=== PATIENT | female | born 1950 | race Caucasian/White ===

== ENCOUNTER 2019-10-19 08:57 | Day surgery (SDC) | payer MEDICARE ==
[2019-10-19] MEDS ORDERED: Depo-Medrol 40 MG/ML IM ONE (08:58)
[2019-10-19] MEDS ORDERED: Marcaine 0.5% SDV 10 ML IJ ONE (08:58)
[2019-10-19] MEDS ORDERED: DIPRIVAN 200 MG/20 ML IV ONE (10:24)
[2019-10-19] MEDS ORDERED: Ketamine HCl 50 MG/ML ONE (10:24)
[2019-10-19] MEDS ORDERED: Lactated Ringers 1,000 ML IV ONE (12:50)
--- NOTE | 2019-10-19 14:29 | XRAY ---
12 seconds fluoroscopy time in surgery for right intra-articular knee injection.
--- NOTE | 2019-10-19 14:29 | XRAY ---
6 seconds fluoroscopy time in surgery for left intra-articular knee injection.
--- NOTE | 2019-10-22 21:21 | XRAY ---
Indication: Intra-articular left knee injection. Intraoperative fluoroscopy was provided for 6 seconds. A single digital spot image submitted for interpretation demonstrates a needle tip projected over the left femur intercondylar notch. A small amount contrast has been injected for needle tip placement. Correlate with intraoperative findings/report.
--- NOTE | 2019-10-22 21:21 | XRAY ---
Indication: Intra-articular right knee injection. Intraoperative fluoroscopy was provided for 12 seconds. A single digital spot image submitted for interpretation demonstrates a needle tip projected over the right femur intercondylar notch. A small amount of contrast has been injected for needle tip placement. Correlate with intraoperative findings/report.
== END 2019-10-19 10:50 | disposition home or self-care (01) ==
LOC: SDC-PAIN 08:57
PROVIDERS: ATTEND Psychiatry & Neurology Pain Medicine
DX: M17.0 Bilateral primary osteoarthritis of knee (principal); E11.9 Type 2 diabetes mellitus without complications; J45.909 Unspecified asthma, uncomplicated; M06.9 Rheumatoid arthritis, unspecified; I10 Essential (primary) hypertension; G47.30 Sleep apnea, unspecified; Z79.899 Other long term (current) drug therapy
CPT/HCPCS: 20610; 73560; 77002; 82962; J1030; J2704; Q9966

== ENCOUNTER 2019-11-16 07:49 | Day surgery (SDC) | payer MEDICARE ==
[2019-11-16] MEDS ORDERED: LIDOCAINE HCL 2% 100 MG/5 ML IJ ONE (07:50)
[2019-11-16] MEDS ORDERED: Depo-Medrol 40 MG/ML IM ONE (07:50)
[2019-11-16] MEDS ORDERED: Ketamine HCl 50 MG/ML ONE (09:16)
[2019-11-16] MEDS ORDERED: DIPRIVAN 200 MG/20 ML IV ONE (09:16)
--- NOTE | 2019-11-16 11:00 | XRAY ---
Indication: Bilateral L4-S1 MBB. Intraoperative fluoroscopy was provided for 13 seconds. Single digital spot image submitted for interpretation demonstrates posterior needle tips projecting over the expected course of the left and right L4-S1 nerve roots. Correlate with intraoperative findings/report.
--- NOTE | 2019-11-16 11:48 | XRAY ---
13 seconds of fluoroscopy was used in surgery for a bilateral L4-L5 and L5-S1 MBB.
[2019-11-16] MEDS ORDERED: Lactated Ringers 1,000 ML IV ONE (15:54)
== END 2019-11-16 09:46 | disposition home or self-care (01) ==
LOC: SDC-PAIN 07:49
PROVIDERS: ATTEND Psychiatry & Neurology Pain Medicine
DX: M47.816 Spondylosis without myelopathy or radiculopathy, lumbar region (principal); E11.9 Type 2 diabetes mellitus without complications; I10 Essential (primary) hypertension; M06.9 Rheumatoid arthritis, unspecified; G47.30 Sleep apnea, unspecified; M19.90 Unspecified osteoarthritis, unspecified site; J45.909 Unspecified asthma, uncomplicated; Z79.899 Other long term (current) drug therapy
CPT/HCPCS: 64494; 72020; 77002; 82962; J1030; J2704

== ENCOUNTER 2019-12-14 07:55 | Day surgery (SDC) | payer MEDICARE ==
[~2019-12-14 07:55] MED LIST: DIPRIVAN 200 MG/20 ML IV ONE; Ketamine HCl 50 MG/ML ONE
[2019-12-14] MEDS ORDERED: BUPIVACAINE 0.5% VIAL IJ ONE (07:56)
[2019-12-14] MEDS ORDERED: Depo-Medrol 40 MG/ML IM ONE (07:56)
--- NOTE | 2019-12-14 12:44 | XRAY ---
13 seconds of fluoroscopy was used in surgery for a bilateral L4-L5 and L5-S1 MBB.
[2019-12-14] MEDS ORDERED: Lactated Ringers 1,000 ML IV ONE (14:38)
== END 2019-12-14 09:27 | disposition home or self-care (01) ==
LOC: SDC-PAIN 07:55
PROVIDERS: ATTEND Psychiatry & Neurology Pain Medicine
DX: M47.816 Spondylosis without myelopathy or radiculopathy, lumbar region (principal); E11.9 Type 2 diabetes mellitus without complications; J45.909 Unspecified asthma, uncomplicated; I10 Essential (primary) hypertension; M06.9 Rheumatoid arthritis, unspecified; G47.30 Sleep apnea, unspecified; Z79.899 Other long term (current) drug therapy
CPT/HCPCS: 64493; 64494; 72020; 77002; 82962; J1030; J2704

== ENCOUNTER 2020-01-11 10:20 | Day surgery (SDC) | payer MEDICARE ==
[2020-01-11] MEDS ORDERED: BUPIVACAINE 0.5% VIAL IJ ONE (10:21)
[2020-01-11] MEDS ORDERED: Depo-Medrol 40 MG/ML IM ONE (10:21)
[2020-01-11] MEDS ORDERED: Xylocaine 1% Vial 30 ML PF IJ ONE (10:21)
[2020-01-11] MEDS ORDERED: DIPRIVAN 200 MG/20 ML IV ONE (12:24)
[2020-01-11] MEDS ORDERED: Ketamine HCl 50 MG/ML ONE (12:24)
--- NOTE | 2020-01-11 14:07 | XRAY ---
Indication: Right L4-S1 RFA. Intraoperative fluoroscopy was provided for 15 seconds. 3 digital spot images submitted for interpretation demonstrates posterior needle tips projecting over the expected course of the right L4-S1 nerve roots. Correlate with intraoperative findings/report.
--- NOTE | 2020-01-11 14:17 | XRAY ---
15 seconds fluoroscopy time in surgery for right L4-S1 RFA.
[2020-01-11] MEDS ORDERED: Lactated Ringers 1,000 ML IV ONE (15:30)
== END 2020-01-11 12:55 | disposition home or self-care (01) ==
LOC: SDC-PAIN 10:20
PROVIDERS: ATTEND Psychiatry & Neurology Pain Medicine
DX: M47.816 Spondylosis without myelopathy or radiculopathy, lumbar region (principal); E11.9 Type 2 diabetes mellitus without complications; I10 Essential (primary) hypertension; M06.9 Rheumatoid arthritis, unspecified; J45.909 Unspecified asthma, uncomplicated; G47.30 Sleep apnea, unspecified; Z79.899 Other long term (current) drug therapy
CPT/HCPCS: 64635; 64636; 72100; 77002; 82962; J1030; J2001; J2704

== ENCOUNTER 2020-01-18 10:17 | Day surgery (SDC) | payer MEDICARE ==
[2020-01-18] MEDS ORDERED: BUPIVACAINE 0.5% VIAL IJ ONE (10:18)
[2020-01-18] MEDS ORDERED: Xylocaine 1% Vial 30 ML PF IJ ONE (10:18)
[2020-01-18] MEDS ORDERED: Depo-Medrol 40 MG/ML IM ONE (10:18)
--- NOTE | 2020-01-18 13:23 | XRAY ---
Indication: Left L4-S1 RFA. Intraoperative fluoroscopy was provided for 21 seconds. 3 digital spot images submitted for interpretation demonstrates posterior needle tips projecting over the expected left L4-S1 nerve roots. Correlate with intraoperative findings/report.
--- NOTE | 2020-01-18 13:25 | XRAY ---
21 seconds fluoroscopy time in surgery for left L4-S1 RFA.
[2020-01-18] MEDS ORDERED: Lactated Ringers 1,000 ML IV ONE (15:11)
== END 2020-01-18 12:01 | disposition home or self-care (01) ==
LOC: SDC-PAIN 10:17
PROVIDERS: ATTEND Psychiatry & Neurology Pain Medicine
DX: M47.816 Spondylosis without myelopathy or radiculopathy, lumbar region (principal); E11.9 Type 2 diabetes mellitus without complications; I10 Essential (primary) hypertension; M06.9 Rheumatoid arthritis, unspecified; G47.30 Sleep apnea, unspecified; Z79.899 Other long term (current) drug therapy
CPT/HCPCS: 64635; 64636; 72100; 77002; 82962; J1030; J2001; J2704

== ENCOUNTER 2020-08-01 08:46 | Day surgery (SDC) | payer MEDICARE ==
[2020-08-01] MEDS ORDERED: BUPIVACAINE 0.5% VIAL IJ ONE (08:47)
[2020-08-01] MEDS ORDERED: Depo-Medrol 40 MG/ML IM ONE (08:47)
[2020-08-01] MEDS ORDERED: DIPRIVAN 200 MG/20 ML IV ONE ×2 (10:26→11:15)
[2020-08-01] MEDS ORDERED: Ketamine HCl 50 MG/ML ONE (10:26)
--- NOTE | 2020-08-01 12:21 | XRAY ---
Indication: Right knee injection. Intraoperative fluoroscopy provided for 23 seconds. Single digital spot image submitted for interpretation demonstrates needle tip projecting over the right femur intercondylar notch. Small amount of contrast injected for needle tip placement. Correlate with intraoperative findings/report.
--- NOTE | 2020-08-01 12:21 | XRAY ---
Indication: Left knee injection. Intraoperative fluoroscopy provided for 14 seconds. 2 digital spot image submitted for interpretation demonstrates needle tip projecting over the left femur intercondylar notch. Small amount of contrast injected for needle tip placement. Correlate with intraoperative findings/report.
--- NOTE | 2020-08-01 12:49 | XRAY ---
23 seconds of fluoroscopy was used in surgery for a right intra-articular knee injection.
--- NOTE | 2020-08-01 12:49 | XRAY ---
14 seconds of fluoroscopy was used in surgery for a left intra-articular knee injection.
[2020-08-01] MEDS ORDERED: Lactated Ringers 1,000 ML IV ONE (15:13)
== END 2020-08-01 11:37 | disposition home or self-care (01) ==
LOC: SDC-PAIN 08:46
PROVIDERS: ATTEND Psychiatry & Neurology Pain Medicine
DX: M17.0 Bilateral primary osteoarthritis of knee (principal); E11.9 Type 2 diabetes mellitus without complications; I10 Essential (primary) hypertension; M06.9 Rheumatoid arthritis, unspecified; G47.30 Sleep apnea, unspecified; J45.909 Unspecified asthma, uncomplicated; Z79.899 Other long term (current) drug therapy
CPT/HCPCS: 20610; 73560; 77002; 82947; J1030; J2704; Q9966

== ENCOUNTER 2021-05-29 07:23 | Day surgery (SDC) | payer MEDICARE ==
[2021-05-29] MEDS ORDERED: GELSYN-3 IU ONE (07:24)
[2021-05-29] MEDS ORDERED: Lactated Ringers 1,000 ML IV ONE (08:58)
[2021-05-29] MEDS ORDERED: DIPRIVAN 200 MG/20 ML IV ONE (09:26)
--- NOTE | 2021-05-29 11:42 | XRAY ---
14 seconds of fluoroscopy was used in surgery for a left intra-articular knee injection.
--- NOTE | 2021-05-29 11:51 | XRAY ---
Indication: Right knee injection. Intraoperative fluoroscopy provided for 11 seconds. Single digital spot image submitted for interpretation demonstrates needle tip projecting over the right femur intercondylar notch. Small amount of contrast injected for needle tip placement. Correlate with intraoperative findings/report.
--- NOTE | 2021-05-29 11:53 | XRAY ---
Indication: Left knee injection. Intraoperative fluoroscopy provided for 14 seconds. Single digital spot image submitted for interpretation demonstrates needle tip projecting over the left femur intercondylar notch. Small amount of contrast injected for needle tip placement. Correlate with intraoperative findings/report.
--- NOTE | 2021-05-29 11:53 | XRAY ---
11 seconds of fluoroscopy was used in surgery for a right intra-articular knee injection.
== END 2021-05-29 09:50 | disposition home or self-care (01) ==
LOC: SDC-PAIN 07:23
PROVIDERS: ATTEND Psychiatry & Neurology Pain Medicine
DX: M17.0 Bilateral primary osteoarthritis of knee (principal); E11.9 Type 2 diabetes mellitus without complications; I10 Essential (primary) hypertension; Z79.899 Other long term (current) drug therapy
CPT/HCPCS: 20610; 73560; 77002; 82947; J2704; Q9966; J7328

== ENCOUNTER 2021-06-05 07:28 | Day surgery (SDC) | payer MEDICARE ==
[2021-06-05] MEDS ORDERED: GELSYN-3 IU ONE (07:29)
[2021-06-05] MEDS ORDERED: DIPRIVAN 200 MG/20 ML IV ONE (09:24)
--- NOTE | 2021-06-05 10:04 | XRAY ---
Indication: Left knee injection. Intraoperative fluoroscopy provided for 7 seconds. Single digital spot image submitted for interpretation demonstrates needle tip projecting over the left femur intercondylar notch. Small amount of contrast injected for needle tip placement. Correlate with intraoperative findings/report.
[2021-06-05] MEDS ORDERED: Lactated Ringers 1,000 ML IV ONE (10:14)
--- NOTE | 2021-06-05 10:30 | XRAY ---
11 seconds of fluoroscopy was used in surgery for a right knee intra-articular injection.
--- NOTE | 2021-06-05 10:40 | XRAY ---
7 seconds of fluoroscopy was used in surgery for a left knee intra-articular injection.
== END 2021-06-05 09:45 | disposition home or self-care (01) ==
LOC: SDC-PAIN 07:28
PROVIDERS: ATTEND Psychiatry & Neurology Pain Medicine
DX: M17.0 Bilateral primary osteoarthritis of knee (principal); E11.9 Type 2 diabetes mellitus without complications; I10 Essential (primary) hypertension; Z79.899 Other long term (current) drug therapy
CPT/HCPCS: 20610; 73560; 77002; 82947; J2704; Q9966; J7328

== ENCOUNTER 2021-06-12 07:41 | Day surgery (SDC) | payer MEDICARE ==
[2021-06-12] MEDS ORDERED: Depo-Medrol 40 MG/ML IM ONE (07:42)
[2021-06-12] MEDS ORDERED: GELSYN-3 IU ONE (07:42)
[2021-06-12] MEDS ORDERED: DIPRIVAN 200 MG/20 ML IV ONE (09:07)
--- NOTE | 2021-06-12 10:32 | XRAY ---
Indication: Right knee injection. Intraoperative fluoroscopy provided for 14 seconds. Single digital spot image submitted for interpretation demonstrates needle tip projecting over the right femur intercondylar notch. Small amount of contrast injected for needle tip placement. Correlate with intraoperative findings/report.
--- NOTE | 2021-06-12 10:55 | XRAY ---
30 seconds fluoroscopy time in surgery for right C2-C4 RFA.
[2021-06-12] MEDS ORDERED: Lactated Ringers 1,000 ML IV ONE (11:20)
== END 2021-06-12 09:55 | disposition home or self-care (01) ==
LOC: SDC-PAIN 07:41
PROVIDERS: ATTEND Psychiatry & Neurology Pain Medicine
DX: M17.0 Bilateral primary osteoarthritis of knee (principal); E11.9 Type 2 diabetes mellitus without complications; Z79.899 Other long term (current) drug therapy
CPT/HCPCS: 20610; 73560; 77002; 82947; J1030; J2704; Q9966; J7328

== ENCOUNTER 2021-09-18 10:24 | Day surgery (SDC) | payer MEDICARE ==
[2021-09-18] MEDS ORDERED: Depo-Medrol 40 MG/ML IM ONE (10:25)
[2021-09-18] MEDS ORDERED: Sodium Chloride 0.9(Preservative Free) 10 ML IJ ONE (10:25)
[2021-09-18] MEDS ORDERED: DIPRIVAN 200 MG/20 ML IV ONE (13:14)
[2021-09-18] MEDS ORDERED: Lactated Ringers 1,000 ML IV ONE (13:40)
--- NOTE | 2021-09-18 13:50 | XRAY ---
Indication: Right L4-S1 transforaminal ARCHANA. Intraoperative fluoroscopy provided for 30 seconds. 4 digital spot image submitted for interpretation demonstrates posterior needle tips projecting over the expected right L4 and L5 nerve roots. Small amount of contrast injected for needle tip placement. Correlate with intraoperative findings/report.
--- NOTE | 2021-09-18 14:25 | XRAY ---
30 seconds of fluoroscopy was used in surgery for a right L4-S1 transforaminal ARCHANA.
== END 2021-09-18 13:35 | disposition home or self-care (01) ==
LOC: SDC-PAIN 10:24
PROVIDERS: ATTEND Psychiatry & Neurology Pain Medicine
DX: M54.16 Radiculopathy, lumbar region (principal); E11.9 Type 2 diabetes mellitus without complications; I10 Essential (primary) hypertension; Z79.899 Other long term (current) drug therapy
CPT/HCPCS: 64483; 64484; 72100; 77003; 82947; J1030; J2704; Q9966

== ENCOUNTER 2021-12-18 07:20 | Day surgery (SDC) | payer MEDICARE ==
[2021-12-18] MEDS ORDERED: Marcaine Mpf 0.5% Vial 30 Ml IJ ONE (07:21)
[2021-12-18] MEDS ORDERED: XYLOCAINE-MPF 1% 5ML SDV IJ ONE (07:21)
[2021-12-18] MEDS ORDERED: Depo-Medrol 40 MG/ML IM ONE (07:21)
[2021-12-18] MEDS ORDERED: DIPRIVAN 200 MG/20 ML IV ONE (09:25)
--- NOTE | 2021-12-18 11:31 | XRAY ---
Indication: Right L4-S1 RFA. Intraoperative fluoroscopy provided for 24 seconds. 4 digital spot image submitted for interpretation demonstrates posterior needle tips projecting over the expected right L4-S1 nerve roots. Correlate with intraoperative findings/report.
--- NOTE | 2021-12-18 12:08 | XRAY ---
24 seconds of fluoroscopy was used in surgery for a right L4-S1 RFA.
[2021-12-18] MEDS ORDERED: Lactated Ringers 1,000 ML IV ONE (12:13)
== END 2021-12-18 09:50 | disposition home or self-care (01) ==
LOC: SDC-PAIN 07:20
PROVIDERS: ATTEND Psychiatry & Neurology Pain Medicine
DX: M47.816 Spondylosis without myelopathy or radiculopathy, lumbar region (principal); E11.9 Type 2 diabetes mellitus without complications; Z79.899 Other long term (current) drug therapy
CPT/HCPCS: 64635; 64636; 72100; 77002; 82947; J1030; J2704

== ENCOUNTER 2021-12-25 07:27 | Day surgery (SDC) | payer MEDICARE ==
[2021-12-25] MEDS ORDERED: Marcaine Mpf 0.5% Vial 30 Ml IJ ONE (07:28)
[2021-12-25] MEDS ORDERED: XYLOCAINE-MPF 1% 5ML SDV IJ ONE (07:28)
[2021-12-25] MEDS ORDERED: Depo-Medrol 40 MG/ML IM ONE (07:28)
[2021-12-25] MEDS ORDERED: DIPRIVAN 200 MG/20 ML IV ONE (09:01)
[2021-12-25] MEDS ORDERED: Lactated Ringers 1,000 ML IV ONE (10:15)
--- NOTE | 2021-12-25 11:14 | XRAY ---
Indication: Left L4-S1 RFA. Intraoperative fluoroscopy provided for 19 seconds. 3 digital spot image submitted for interpretation demonstrates posterior needle tips projecting over the expected left L4-S1 nerve roots. Correlate with intraoperative findings/report.
--- NOTE | 2021-12-25 11:14 | XRAY ---
19 seconds fluoroscopy time in surgery for left L4-S1 RFA
== END 2021-12-25 09:23 | disposition home or self-care (01) ==
LOC: SDC-PAIN 07:27
PROVIDERS: ATTEND Psychiatry & Neurology Pain Medicine
DX: M47.816 Spondylosis without myelopathy or radiculopathy, lumbar region (principal); E11.9 Type 2 diabetes mellitus without complications; Z79.899 Other long term (current) drug therapy
CPT/HCPCS: 64635; 64636; 72100; 77002; 82947; J1030; J2704

== ENCOUNTER 2022-05-14 09:07 | Day surgery (SDC) | payer MEDICARE ==
[2022-05-14] MEDS ORDERED: GELSYN-3 IU ONE (09:08)
[2022-05-14] MEDS ORDERED: BUPIVACAINE 0.5% VIAL IJ ONE (09:08)
[2022-05-14] MEDS ORDERED: Depo-Medrol 40 MG/ML IM ONE (09:08)
[2022-05-14] MEDS ORDERED: DIPRIVAN 200 MG/20 ML IV ONE (11:01)
--- NOTE | 2022-05-14 12:15 | XRAY ---
Indication: Right knee injection. Intraoperative fluoroscopy provided for 12 seconds. Single digital spot image submitted for interpretation demonstrates needle tip projecting over the right femur intercondylar notch. Small amount of contrast injected for needle tip placement. Correlate with intraoperative findings/report.
--- NOTE | 2022-05-14 12:22 | XRAY ---
12 seconds fluoroscopy time in surgery for intra-articular injection of the right knee.
[2022-05-14] MEDS ORDERED: Lactated Ringers 1,000 ML IV ONE (15:30)
== END 2022-05-14 11:30 | disposition home or self-care (01) ==
LOC: SDC-PAIN 09:07
PROVIDERS: ATTEND Psychiatry & Neurology Pain Medicine
DX: M17.11 Unilateral primary osteoarthritis, right knee (principal); E11.9 Type 2 diabetes mellitus without complications; Z79.899 Other long term (current) drug therapy
CPT/HCPCS: 20610; 73560; 77002; 82947; J1030; J2704; J7328; Q9966

== ENCOUNTER 2022-05-21 08:56 | Day surgery (SDC) | payer MEDICARE ==
[2022-05-21] MEDS ORDERED: GELSYN-3 IU ONE (08:57)
[2022-05-21] MEDS ORDERED: DIPRIVAN 200 MG/20 ML IV ONE (11:10)
[2022-05-21] MEDS ORDERED: Lactated Ringers 1,000 ML IV ONE (11:37)
--- NOTE | 2022-05-21 12:25 | XRAY ---
11 seconds of fluoroscopy was used in surgery for a right intra-articular knee injection.
== END 2022-05-21 11:50 | disposition home or self-care (01) ==
LOC: SDC-PAIN 08:56
PROVIDERS: ATTEND Psychiatry & Neurology Pain Medicine
DX: M17.11 Unilateral primary osteoarthritis, right knee (principal); E11.9 Type 2 diabetes mellitus without complications; Z79.899 Other long term (current) drug therapy
CPT/HCPCS: 20610; 73560; 77002; 82947; J2704; J7328; Q9966

== ENCOUNTER 2022-05-28 09:06 | Day surgery (SDC) | payer MEDICARE ==
[2022-05-28] MEDS ORDERED: SYNVISC 16 MG/2 ML SYRINGE IU ONE (09:07)
[2022-05-28 09:39] LABS: POCT GLUCOSE 95 mg/dL (74 to 106)
[2022-05-28] MEDS ORDERED: DIPRIVAN 200 MG/20 ML IV ONE (10:59)
--- NOTE | 2022-05-28 11:41 | XRAY ---
Indication: Right knee injection. Intraoperative fluoroscopy provided for 6 seconds. Single digital spot image submitted for interpretation demonstrates needle tip projecting over the right femur intracondylar notch. Small amount of contrast injected for needle tip placement. Correlate with intraoperative findings/report.
--- NOTE | 2022-05-28 11:47 | XRAY ---
6 seconds of fluoroscopy was used in surgery for a right intra-articular knee injection.
[2022-05-28] MEDS ORDERED: Lactated Ringers 1,000 ML IV ONE (14:06)
== END 2022-05-28 11:14 | disposition home or self-care (01) ==
LOC: SDC-PAIN 09:06
PROVIDERS: ATTEND Psychiatry & Neurology Pain Medicine
DX: M17.11 Unilateral primary osteoarthritis, right knee (principal); E11.9 Type 2 diabetes mellitus without complications; Z79.899 Other long term (current) drug therapy
CPT/HCPCS: 20610; 73560; 77002; 82947; J2704; J7325; Q9966

== ENCOUNTER 2022-08-13 09:44 | Day surgery (SDC) | payer MEDICARE ==
[2022-08-13] MEDS ORDERED: BUPIVACAINE 0.5% VIAL IJ ONE (09:45)
[2022-08-13] MEDS ORDERED: Depo-Medrol 40 MG/ML IM ONE (09:45)
[2022-08-13] MEDS ORDERED: DIPRIVAN 200 MG/20 ML IV ONE (12:16)
--- NOTE | 2022-08-13 13:02 | XRAY ---
Indication: Right shoulder and subacromial bursa injection. Intraoperative fluoroscopy provided for 24 seconds. 2 digital spot image submitted for interpretation demonstrates needle tip projecting over the right glenohumeral joint superiorly. Second needle tip subacromial. Small amount of contrast injected for both needle tip placement. Correlate with intraoperative findings/report.
--- NOTE | 2022-08-13 14:56 | XRAY ---
24 seconds of fluoroscopy was used in surgery for a right intra-articular shoulder and subacromial bursa injection.
[2022-08-13] MEDS ORDERED: Lactated Ringers 1,000 ML IV ONE (15:04)
== END 2022-08-13 12:50 | disposition home or self-care (01) ==
LOC: SDC-PAIN 09:44
PROVIDERS: ATTEND Psychiatry & Neurology Pain Medicine
DX: M19.011 Primary osteoarthritis, right shoulder (principal); M75.51 Bursitis of right shoulder; E11.9 Type 2 diabetes mellitus without complications; Z79.899 Other long term (current) drug therapy
CPT/HCPCS: 20610; 73030; 77002; 82947; J1030; J2704; Q9966